=== PATIENT | female | born 1950 | race Caucasian/White ===

== ENCOUNTER 2017-11-28 06:37 | Day surgery (SDC) | payer OTHER ==
[2017-11-28] MEDS ORDERED: ONDANSETRON 4 MG INJ (07:00)
[2017-11-28] MEDS ORDERED: CEFAZOLIN 1 GM INJ (07:00)
[2017-11-28] MEDS ORDERED: DEXAMETHASONE 4 MG/ML 1 ML INJ (07:00)
[2017-11-28] MEDS ORDERED: SOD CHLORIDE 0.9% 1,000 ML IV (08:30)
[2017-11-28] MEDS ORDERED: CEFAZOLIN 1 GM/50 ML (PMX) 50 ML IVPB (08:30)
[2017-11-28] MEDS ORDERED: FENTAnyl 50 MCG/ML VIAL (10:00)
[2017-11-28] MEDS ORDERED: MIDAZOLAM 1 MG/ML 2 ML INJ (10:00)
[2017-11-28] MEDS ORDERED: LIDOCAINE 100 MG SYRINGE (10:01)
[2017-11-28] MEDS ORDERED: PROPOFOL 20 ML (10:01)
[2017-11-28] MEDS ORDERED: METOCLOPRAMIDE 10 MG INJ (10:02)
[2017-11-28] MEDS: BUPIVACAINE 0.5%/EPI (SDV) 30 ML INJ (11:40)
[2017-11-28] MEDS ORDERED: HYDROmorphONE (0.2 MG/ML) 10ML SYG IV ×2 (12:00)
[2017-11-28] MEDS ORDERED: MEPERIDINE 25 MG INJ IV (12:00)
[2017-11-28] MEDS ORDERED: KETOROLAC 30 MG INJ IV (12:00)
[2017-11-28] MEDS ORDERED: ONDANSETRON 4 MG INJ IV (12:00)
[2017-11-28] MEDS ORDERED: HYDROCODONE/APAP (7.5/325) TAB PO (12:00)
[2017-11-28] MEDS ORDERED: FENTAnyl 50 MCG/ML VIAL IV ×2 (12:00)
[2017-11-28] MEDS ORDERED: DIPHENHYDRAMINE 50 MG INJ IV (12:00)
== END 2017-11-28 13:30 | disposition home or self-care (01) ==
LOC: SDS 06:37
DX: L91.0 Hypertrophic scar (principal); L90.5 Scar conditions and fibrosis of skin
CPT/HCPCS: 19120; 71045; 88304; 93005